=== PATIENT | female | born 1970 ===

== ENCOUNTER 2022-05-23 22:33 | Emergency (ER) | payer OTHER ==
[~2022-05-23] VITALS: Ht 152.4 cm; Wt 52.0 kg
[~2022-05-23 22:33] MED LIST: ACET-3385 PO; DOCU-385 PO; GABA-1216 PO; HYDR-4061 PO; OMEP20 PO
[2022-05-23 22:53] LABS: COVID AG,FIA SOURCE NASAL SWAB
[2022-05-23 23:20] LABS: INFLUENZA TYPE A NEGATIVE FOR TYPE A (NEGATIVE); INFLUENZA TYPE B NEGATIVE FOR TYPE B (NEGATIVE)
[2022-05-24 01:30] VITALS: BP 124/63
[2022-05-24] MEDS ORDERED: GUAIF600 PO (01:41)
[2022-05-24] MEDS ORDERED: BENZ-70 PO (01:41)
== END 2022-05-24 02:09 | disposition home or self-care (01) ==
LOC: EMS 22:39
DX: U07.1 COVID-19 (principal)
CPT/HCPCS: 71045; 87804; 99284